=== PATIENT | male | born 1995 | race Caucasian/White ===

== ENCOUNTER 2018-02-11 13:04 | Emergency (ER) | payer OTHER | END 2018-02-11 15:10 | disposition home or self-care (01) | LOC: FTE 13:04 | DX: S90.32XA Contusion of left foot, initial encounter (principal); B35.1 Tinea unguium; X58.XXXA Exposure to other specified factors, initial encounter; Y92.322 Soccer field as the place of occurrence of the external cause | CPT/HCPCS: 73630; 73630-LT; 99283-25 ==